=== PATIENT | male | born 2005 | race African-American/Black ===

== ENCOUNTER 2024-08-28 22:39 | Emergency (ER) | payer MEDICARE, MEDICAID ==
[~2024-08-28] VITALS: Ht 170.2 cm; Wt 58.9 kg
[2024-08-28 22:58] VITALS: O2SAT 99
[2024-08-28 22:59] VITALS: BP 117/73; PULSE 60; RESP 16; TEMP 98.7; O2SAT 98
[2024-08-29 00:02] LABS: EOSINOPHILS % 8.3 % (0.0-5.0); HEMOGLOBIN. 14.9 g/dL (14.0-18.0); LYMPHOCYTES % 58.1 % (20.0-50.0); MEAN CORPUSCULAR HGB CONC 33.9 g/dL (31.0-37.0); MEAN CORPUSCULAR VOLUME 91.5 fL (80.0-94.0); MEAN PLATELET VOLUME 7.3 fl (7.4-10.4); MONOCYTES % 4.7 % (2.0-8.0); NEUTROPHILS % 27.9 % (40.0-76.0); PLATELET 271 x1000/uL (130-400); RED BLOOD CELL COUNT 4.81 mill/uL (4.7-6.1); RED CELL DISTRIBUTION WIDTH 13.3 % (11.6-14.6); WHITE BLOOD COUNT 4.6 x1000/uL (4.5-11.0)
[2024-08-29 00:45] LABS: CHLORIDE 107 mEq/L (98-107); POTASSIUM 3.7 mEq/L (3.5-5.1); SODIUM 141 mEq/L (136-145)
[2024-08-29 00:46] LABS: CARBON DIOXIDE 25 mEq/L (21-32)
[2024-08-29 00:47] LABS: CALCIUM 9.6 mg/dL (8.7-10.4)
[2024-08-29 00:51] LABS: CREATININE 0.9 mg/dL (0.6-1.3); GLUCOSE 85 mg/dL (70-105); UREA NITROGEN BLOOD 13 mg/dL (9-23)
[2024-08-29 00:53] LABS: ALANINE AMINOTRANSFERASE 12 IU/L (10-49); ALBUMIN 4.5 g/dL (3.2-4.8); ASPARTATE AMINOTRANSFERASE 25 IU/L (<34)
[2024-08-29 00:54] LABS: BILIRUBIN DIRECT 0.1 mg/dL (<=3.0); BILIRUBIN TOTAL 0.4 mg/dL (0.1-1.0); PROTEIN TOTAL 7.4 g/dL (6.0-8.3)
[2024-08-29] MEDS ORDERED: NAPR-1176 MT (02:08)
== END 2024-08-29 02:24 | disposition home or self-care (01) ==
LOC: ER 22:39
DX: R10.13 Epigastric pain (principal); Z79.1 Long term (current) use of non-steroidal anti-inflammatories (NSAID); R10.11 Right upper quadrant pain
CPT/HCPCS: 36415; 76705; 80048; 80076; 85025; 99284